=== PATIENT | female | born 1975 | race Caucasian/White ===

== ENCOUNTER 2017-04-23 05:30 | Day surgery (SDC) | payer OTHER ==
[~2017-04-23] VITALS: Ht 175.3 cm; Wt 85.7 kg
[~2017-04-23 05:30] MED LIST: ADDERALL 30 MG30 MG PO; DULOXETINE HCL30 MG PO; MELATIN3 MG PO
--- NOTE | 2017-04-23 10:06 | NUR ---
04/23/17 1006 Kia Lott 0959: O2 100%, O2 REMOVED.
--- NOTE | 2017-04-23 10:38 | NUR ---
PT IS BACK TO FROM PACU. PT COMES BACK NAUSEATED, SHE WAS GIVEN ZOFRAN IN RECOVERY PRIOR TO TRANSFER. PT RATES HER PAIN A 5/10. PT IS RESTING COMFORTABLY. NO OTHER C/O'S AT THIS TIME. WATER AND CRACKERS AT THE BEDSIDE. CALL LIGHT WITHIN REACH. WILL REASSESS WITHIN THE HOUR.
[2017-04-23] MEDS ORDERED: IBUPROFEN800 MG PO (11:22)
[2017-04-23] MEDS ORDERED: PERCOCET 5-3251 EACH PO (11:22)
--- NOTE | 2017-04-23 11:37 | NUR ---
PT REPORTS HER NAUSEA HAS GONE AWAY, SHE IS HAVING PAIN AT THE SURGICAL SITE. SHE IS TOLERATING SIPS OF WATER WITHOUT EMESIS. CALL LIGHT IS WITHIN REACH. HER SO IS AT THE BEDSIDE. NO OTHER C/O'S AT THIS TIME. WILL REASSESS WITHIN THE HOUR.
--- NOTE | 2017-04-23 12:55 | NUR ---
PT IS C/O NAUSEA COMING AND GOING. SHE THINKS SHE COULD GO TO THE BATHROOM. REQUESTING A PAIN PILL. SHE IS EATING AND TOLERATING PUDDING AND SIPS OF SODA AND WATER. CALL LIGHT WITHIN REACH. WILL REASSESS WITHIN THE HOUR.
--- NOTE | 2017-04-23 13:12 | NUR ---
LE 1305: PT IS UP OOB WITH STANDBY ASSIST TO BATHROOM. PT UNABLE TO VOID. PT HELPED BACK INTO BED. GIVEN A PAIN PILL. GIVEN MORE WATER AND 7UP. PT'S SO STILL AT THE BEDSIDE.
--- NOTE | 2017-04-23 13:53 | NUR ---
PT REPORTS FEELING A LOT BETTER. WOULD LIEK TO GET UP AND TRY AND GO TO THE BATHROOM AGAIN. WILL REASSESS WITHIN THE HOUR.
--- NOTE | 2017-04-25 12:28 | OR ---
[facility] [address], [place] [address] Signed DATE OF PROCEDURE: 04/23/17 PREOPERATIVE DIAGNOSIS: Pelvic pain and heavy menstrual bleeding. POSTOPERATIVE DIAGNOSES Pelvic pain and heavy menstrual bleeding. Severe abdominal and pelvic adhesions and endometrial polyp. PROCEDURE: Diagnostic laparoscopy and hysteroscopy with biopsy. SURGEON: Abdirahman Neri MD. INTRAOPERATIVE CONSULT: Dr. Gerber. ANESTHESIA: General. ESTIMATED BLOOD LOSS: 75 mL. SPECIMEN: Endometrium with polyp. DRAINS: None. FINDINGS Vagina normal in appearance, no blood. Normal appearing cervix. Uterus was normal size and shape by palpation. Uterine cavity sounded to 9 cm with moderate amount of normal-appearing tissue within the cavity. There was a small polyp in the midportion of the cavity and there was slight diffuse bleeding throughout. There was severe widespread omental adhesions to the anterior abdominal wall obscuring the entire abdomen and pelvis, so the uterus and tubes and ovaries were unable to be identified or visualized. COMPLICATIONS: None. DESCRIPTION OF PROCEDURE The patient was brought in the operating room, placed in supine position. After adequate general anesthesia was obtained, was placed in a dorsal lithotomy position, prepped and draped in usual sterile fashion. A Valentine catheter was placed in the bladder. A weighted speculum was placed in the vagina and the anterior lip of the cervix grasped with Al l is clamp. Uterine cavity was sounded to 9 cm and the cervix serially dilated up to a #8-Colombian dilator. The hysteroscope was placed in the cervix, entered the endocervical canal and into the uterine cavity under direct visualization. Sterile saline was used as distending medium and the above findings were noted. The MyoSure LITE was then placed through the hysteroscope and the endometrial tissue was sampled in 360-degree fashion Electronically Signed By: ABDIRAHMAN NERI MD 04/25/17 1228 PATIENT NAME: MAYURI ZHANG OPERATIVE REPORT DATE OF : 75 PHYSICIAN: ABDIRAHMAN NERI MD REPORT #: [id number] REPORT IS CONFIDENTIAL AND NOT TO BE RELEASED WITHOUT AUTHORIZATION [facility] [address], [place] [address] Signed under direct visualization. Polyp was identified and was also removed with MyoSure Lite, again under direct visualization. The endometrial cavity was inspected. No additional abnormal masses lesions were seen. Bleeding seemed to be controlled, so the hysteroscope was removed. The estimated fluid loss was 155 mm, but approximately 9 inch puddle of fluid was noted on the floor, which would account for most of this. The pressure throughout the case was at 80 mmHg. The hysteroscope was placed aside and a Hulka clamp entered the uterine cavity and attached to the anterior lip of the cervix. The Allis clamp and weighted speculum were removed. Attention was then drawn to the abdomen. A small infraumbilical skin incision was made with a scalpel after injecting local anesthetic. The subcutaneous tissue was grasped with hemostats and opened with Metzenbaum scissors. The fascia was identified, grasped with 2 hemostats and opened in a transverse fashion using Metzenbaum scissors. Retention stitches of 0 Vicryl suture placed above and below the incision. The finger dissection was used to palpate the peritoneum. Attempted to go through the peritoneum with just finger dissection, but the peritoneum was very tough and could not enter, so small retractors were used to identify the peritoneum, which was grasped with hemostats, elevated and nicked with Metzenbaum scissors. Finger palpation revealed omentum throughout the area. Attempt was made to find a clear area, but none could be palpated. The Sandee cannula and sleeve were then tightened and placed with 2 retention stitches. The trocar was removed and the laparoscope carefully inserted. Carbon dioxide was used as distending medium. Severe adhesions were noted throughout. No clear area was noted that could be extended to enter the abdomen around these adhesions. At this point, the laparoscope was removed. The sleeve was removed and the gas allowed to escape. Finger palpation again showed no opening, so because of the severe adhesions at this point, the General Surgeon, Dr. Gerber, was called for assistance in entering the abdomen further up. Dr. Gerber then proceeded to make a midline substernal incision, and after entering the abdomen and identifying the peritoneum and getting into the abdomen, same adhesions were noted and even after an attempt to get around through these adhesions, there appeared to be no empty space within the abdomen or pelvis. At this time, it was decided not to proceed further that the patient probably need laparotomy if desired, so the laparoscopic procedure was terminated. Two incisions were observed and any bleeding spots within the abdominal wall were cauterized with the Bovie. The peritoneou was closed in the infraumbilical incision with 3-0 Monocryl. Evicel was placed in the 2 incisions to help with any6 slight bleedingthat remained. Both fascial incisions were closed with 0 Vicryl suture. The subcutaneous tissue was closed with 3-0 Monocryl to help reduce the tension on the skin. The patient had a previous abdominoplasty and skin was very tight, so the attempt was made to take some of the tension off the skin incision. The skin was reapproximated using 2-0 Vicryl in a subcuticular stitch. Steri-Strips were placed on the incision and the incisions covered with gauze and tape. The Hulka clamp was removed. The cervix noted to have good hemostasis. Valentine catheter was removed. The patient tolerated the procedure well, went to recovery room in good condition. The sponge, Electronically Signed By: ABDIRAHMAN NERI MD 04/25/17 1228 PATIENT NAME: MAYURI ZHANG OPERATIVE REPORT DATE OF : 75 PHYSICIAN: ABDIRAHMAN NERI MD REPORT #: [id number] REPORT IS CONFIDENTIAL AND NOT TO BE RELEASED WITHOUT AUTHORIZATION [facility] [address], [place] [address] Signed needle, and instrument count correct at the end of the procedure. MD KARYN Bishop/Modad /[id number] cc: DO Terrence Leija MD Electronically Signed By: ABDIRAHMAN NERI MD 04/25/17 1228 PATIENT NAME: MAYURI ZHANG CHRISTIAN OPERATIVE REPORT DATE OF : 75 PHYSICIAN: ABDIRAHMAN NERI MD REPORT #: [id number] REPORT IS CONFIDENTIAL AND NOT TO BE RELEASED WITHOUT AUTHORIZATION
--- NOTE | 2017-05-15 07:48 | OR ---
[facility] [address], [place] [address] Signed DATE OF PROCEDURE: 04/23/17 PREOPERATIVE DIAGNOSIS: Pelvic pain, assessment for endometriosis. POSTOPERATIVE DIAGNOSIS Advanced intraabdominal adhesions, uncertain etiology. PROCEDURE Provision of access to the peritoneal cavity in assistance to Dr. Neri. HISTORY This 41-year-old white woman has undergone abdominoplasty in the past, but not known to have had intraabdominal operation, particularly other than a tubal ligation according to Dr. Neri. As requested, an intraoperative consultation to assist Dr. Neri in access to the abdomen during the course of the operation. He had made an infraumbilical incision anticipating laparoscopy, but his attempts at certain intubation of peritoneal cavity were not assured. On that basis, consultation was obtained for access to the abdomen. FINDINGS The infraumbilical incision provided by Dr. Neri showed the fascial layers as expected and upon digital examination, a fatty space that was not particularly discernible as peritoneal cavity versus the properitoneal space proper. Noted was impressive flat tension on the abdominal wall despite excellent relaxation by anesthetic paralysis. On that basis, an epigastric vertical incision was made and ultimately the peritoneal cavity entered, but it was not free by any means. Intense omental adhesions were noted throughout the abdomen and the area of the infraumbilical entry point appeared to be in the peritoneal cavity, but distorted in great detail from the omentum that obliterated the peritoneal cavity itself. DESCRIPTION OF PROCEDURE The patient was brought to the operating room by Dr. Neri and anesthesia induced and abdomen prepared. Elevated lower extremities were noted as part of the preoperative preparation and the abdomen had been prepared with a Chlorhexidine solution. My inspection of the umbilical incision showed the fascial edges to be discrete and digital examination showed a dense fibrous space. It was unclear if this represented the properitoneal space or the peritoneal space with omental adhesions. It was quite obviously inhospitable to further digital manipulation and therefore I performed a small epigastric incision with a 15 blade, dissection carried down to the midline fascia (linea alba). This was divided and blunt separation undertaken allowing for identification of the posterior rectus sheath. This was tented with hemostats and Electronically Signed By: REDD RUSSO MD 05/15/17 0748 PATIENT NAME: MAYURI ZHANG OPERATIVE REPORT DATE OF : 75 PHYSICIAN: REDD RUSSO MD REPORT #: [id number] REPORT IS CONFIDENTIAL AND NOT TO BE RELEASED WITHOUT AUTHORIZATION [facility] [address], [place] [address] Signed divided sharply under direct visualization with loupe magnification. Using a hemostat, the soft tissue was , no doubt into the region of the falciform ligament. Care was taken in dissecting to get outside the space, but ultimately digital examination was undertaken showing what appeared to be the peritoneum in its slick surface, but considerable omental adhesions throughout. The insufflating trocar was then placed into the site a n d a 0-degree and subsequently 30-degree endoscope placed. Manipulation showed areas of freedom from omental adhesive obliteration of the space and connection to the infraumbilical incision previously made. Photographs were taken confirming dense intra-abdominal adhesive changes, but no freedom through the peritoneal space otherwise. After conferring with Dr. Neri, it was deemed most advisable to abandon further laparoscopic efforts. Whether or not a laparotomy ultimately be necessary remains to be determined. Hemostasis was assured and the fascia of the midline in the epigastric incision was closed with interrupted 0 Vicryl suture. The skin to be closed later. Dr. Neri will be closing the infraumbilical incision. MD SWEETIE Cabrera/Jorge /[id number] cc: MD Redd Bishop MD Arian Kargar, Electronically Signed By: REDD RUSSO MD 05/15/17 0748 PATIENT NAME: MAYURI ZHANG CHRISTIAN OPERATIVE REPORT DATE OF : 75 PHYSICIAN: REDD RUSSO MD REPORT #: [id number] REPORT IS CONFIDENTIAL AND NOT TO BE RELEASED WITHOUT AUTHORIZATION
== END 2017-04-23 15:25 | disposition home or self-care (01) ==
LOC: DS 05:30
PROVIDERS: General Practice
PROC: 0WJG4ZZ Inspection of Peritoneal Cavity, Percutaneous Endoscopic Approach (ICD-10-PCS; 2017-04-23)
PROC: 0UB98ZX Excision of Uterus, Via Natural or Artificial Opening Endoscopic, Diagnostic (ICD-10-PCS; principal; 2017-04-23 06:45)
PROC: 0UDB8ZX Extraction of Endometrium, Via Natural or Artificial Opening Endoscopic, Diagnostic (ICD-10-PCS; 2017-04-23 06:45)
DX: N84.0 Polyp of corpus uteri (principal); N73.6 Female pelvic peritoneal adhesions (postinfective); E55.9 Vitamin D deficiency, unspecified; D50.9 Iron deficiency anemia, unspecified; K59.09 Other constipation; F32.9 Major depressive disorder, single episode, unspecified; F41.9 Anxiety disorder, unspecified; G89.29 Other chronic pain; F17.210 Nicotine dependence, cigarettes, uncomplicated; R51 Headache; Z98.890 Other specified postprocedural states; Z98.51 Tubal ligation status; Z90.89 Acquired absence of other organs; Z88.2 Allergy status to sulfonamides
CPT/HCPCS: 00952; J0330; J1100; J1885; J2250; J2405; J2704; J2710; J2765; J3010; J7120